=== PATIENT | female | born 2000 | race Caucasian/White ===

== ENCOUNTER 2024-11-22 13:02 | Emergency (ER) | payer OTHER, SELFPAY ==
[2024-11-22 13:08] VITALS: BP 138/76; PULSE 110; RESP 20; TEMP 37.6; O2SAT 98
--- OUTSIDE RECORDS SUMMARY | 2024-11-22 13:10 | XMS_ITS | Data Portability ---
Author Organization [facility] [place], TEST SITE Address [address] [place] [id number] Care Team Providers Care Italian Lecturer Name Role Phone MAURO CAREY Alligator Hunter Unavailable [facility] Primary Care Provider JERZY LOCKWOOD Alligator Hunter Unavailable STEF SCHMITZ Alligator Hunter Unavailable VERONICA SMITH Program Management Manager Assessment Encounter Date Assessment Date Assessment LastModified by Organization Details LastModified Time 08/09/2024 08/09/2024 23 yo female that comes due to inability to conceive for the past 5 months and a history of recurrent miscarriages. Counseled patient on doing blood work to try to identy treatable causes of anovulation and have a follow up in a month [email or web address] Not available 08/09/2024 14:15:15 Plan of Treatment Reminders Order Date Submit Date Provider Last Modified By Organization Details Last Modified Time Details Appointments None recorded . Lab insulin, serum 024 08/09/20 [facility] (Lab), [address], [place], [address], 4 11:20:50 progeste tashi, serum 024 08/09/[address] (Lab), [address], [place], [address], 4 18:08:46 prolacti n, serum 024 08/09/20 [facility] (Lab), [address], [place], [address], 4 11:20:46 TSH, serum or plasma 024 08/09/20 [facility] o3 [facility] (Lab), [address], [place], [address], 18:08:46 progeste tashi, serum 024 08/30/20 [facility]3 [facility] (Lab), [address], [place], [address], 18:08:47 Referral None recorded . Procedures None recorded . Surgeries None recorded . Imaging None recorded . Medication Orders Clomid 50 mg tablet 08/30/20 [email or web address] Aidan Castillo [facility], [address] [place], [address], 17:03:57 Patient TargetsNo targets recorded. Patient Instructions Encounter Date Encounter Id Patient Instructions Last Modified By Organization Details Last Modified Time 08/09/2024 [id number] Patient is a 23-year-old female, she is a 9 para 2-0-7-2, who is seen today for management of irregular menstrual cycles and the inability to become . She has a history of recurrent losses in the past. She has had 2 children normally from the vagina. Her last child is now 2 years of age. After she had her last child, she had a subdermal implant placed and this was removed in February 2024. Her cycles were initially irregular but in the last 3 months she has had regular menstrual cycles. She states that she has been ovulating according to her ovulation kits. I have advised the patient to get some laboratory investigations to actually document to see whether she is ovulating. I will see her back in 3 weeks and follow-up on these results. [email or web address] Not available 08/09/2024 14:16:19 08/30/2024 [id number] 23-year-old female, she is a 9 para 2-0-7-2, who is seen today for management of irregular menstrual cycles and the inability to become . She has a history of recurrent losses in the past. She has had 2 children normally from the vagina. Her last child is now 2 years of age. After she had her last child, she had a subdermal implant placed and this was removed in February 2024. Her cycles were initially irregular but in the last 3 months she has had regular menstrual cycles. She states that she has been ovulating according to her ovulation kits. I have advised the patient to get some laboratory investigations to actually document to see whether she is ovulating. She had some laboratory investigation including a TSH, and prolactin level within normal limits. She however had a very low progesterone assay. I suspect that she is not ovulating have advised her to go on Clomid 50 mg tablets per day for 5 days. I have explained to her in details the proper way to use the Clomid therapy and I will call her with the results of the progesterone assay after she completes the Clomid [email or web address] Not available 08/30/2024 16:07:20 Reason for Referral None Reported. Results Created Date Observation Date Name Description Value Unit Range Abnormal Flag Note LastModifiedBy Organization Detail LastModifiedTime 03/02/20 24 03/06/2024 PROTE IN C-FUN CTION AL LC protein C-functional 125 % 73-180 Na Perfo rmed At: [facility] [place] [address] [place] [address] Maria Luisa Garcia MD Ph:[phone] Not Available [facility] (Lab) [address], [place], [address], 03/06/2024 20:08:41 03/03/20 24 03/02/2024 US, manny s No observ ation record ed. [email or web address] [facility] (Imaging) [address], [place], [address], 03/04/2024 13:43:13 Result Notes None recorded. Problems No Known Problems Procedures Surgical History Date Name Laterality Status Provider Name and Address Organization Details Recorded Time 4 Telephone Visit completed Jerzy Lockwood MD [address], [place], [address], [facility] 04/06/2024 15:35:17 Control Implant Removal ([place]) completed Stef Schmitz MD [address], [place], [address], [facility] 03/15/2024 17:44:17 Other completed Mary Cotton [facility] 02/17/2024 13:18:47 Imaging Results Imaging Date Name Status LastModified by Organiz ation Details LastModified Time 03/02/2024 US, pelvis [email or web address] [address], [place], [address], 03/04/2024 13:43:13 Procedure Notes None recorded. Medical Equipment None Reported. Allergies No known drug allergies Medications Name Sig Start Date Stop Date Status Note LastModified by Organization Details LastModified Time ondansetron HCl 4 mg tablet 03/15 completed Not Available Not Available Not Available dicyclomine 20 mg tablet 03/15 completed Not Available Not Available Not Available cephalexin 500 mg capsule 03/15 completed Not Available Not Available Not Available Clomid 50 mg tablet Take 1 tablet every day by oral route. 2023 active Not Available Not Available Not Avai lable naproxen 500 mg tablet 03/15 completed Not Available Not Available Not Available albuterol sulfate active Not Available Not Available Not Available Flovent active Not Available Not Avail able Not Available Vitals Date Recorded Body height Body mass index (BMI) Body weight Heart rate Oxygen saturation Oxygen saturation in Arterial blood by Pulse oximetry Pain severity - 0-10 verbal numeric rating [Score] - Reported Systolic blood pressure Diastolic blood pressure Provider Name and Address Organization Details Last Updated DateTime 4 151.77 cm 36.6 kg/m2 89081.1 8 g 93 /min 99 % 99 % 0 124 mm[Hg] 78 mm[Hg] Petra Portillo [facility] 13:16:39 Date Recorded Body height Body mass index (BMI) Body weight Heart rate Oxygen saturation Oxygen saturation in Arterial blood by Pulse oximetry Pain severity - 0-10 verbal numeric rating [Score] - Reported Systolic blood pressure Diastolic blood pressure Systolic blood pressure Diastolic blood pressure Provider Name and Address Organization Details Last Updated DateTime 4 151.77 cm 35.5 kg/m2 96012.3 5 g 105 /min 97 % 97 % 0 144 mm[Hg] 105 mm[Hg] 117 mm[Hg] 2 mm[Hg] Sowmya Kirklandn [facility] 17:38:18 Date Recorded Body height Provider Name an d Address Organization Details Last Updated DateTime 03/22/2024 151.77 cm Matilde Nash [facility] 03/22/2024 15:40:45 Date Recorded Body height Respiratory rate Body mass index (BMI) Body weight Heart rate Oxygen saturation Oxygen saturation in Arterial blood by Pulse oximetry Systolic blood pressure Diastolic blood pressure Provider Name and Address Organization Details Last Updated DateTime 4 151.77 cm 18 /min 35.4 kg/m2 62027.6 3 g 88 /min 98 % 98 % 129 mm[Hg] 86 mm[Hg] Maggie Loyao [facility] 4 13:45:07 Date Recorded Body height Body mass index (BMI) Body weight Oxygen saturation Oxygen saturation in Arterial blood by Pulse oximetry Heart rate Respiratory rate Systolic blood pressure Diastolic blood pressure Provider Name and Address Organization Details Last Updated DateTime 4 151.77 cm 35.4 kg/m2 92556.6 3 g 94 % 94 % 89 /min 18 /min 126 mm[Hg] 79 mm[Hg] Maggie Loyao [facility] 13:04:16 Social History Question Answer Notes LastModified by Organizat ion Details LastModified Time Tobacco Smoking Status Never Smoker Mary silver [facility] 02/17/2024 13:18:47 What Was The Date Of Your Most Recent Tobacco Screening? 03/15/2024 [email or web address] Information not available 03/15/2024 Sex: Female Functional Status None recorded. Mental Status None recorded. Family History Relationship Description Onset Age of this Age Resolved Age Notes LastModified by Organization Details LastModified Time Mother Migraine [email or web address] Not availabl e 02/17/2024 13:18:47 Medical History Condition Response Chest pain Y Migraines Y Depression Y Asthma Y Back Pain Y Ovarian Cyst Y Gynecological History Statement/Question Response Date of LMP 03/07/2024 Post Menopausal Bleeding N Menses Monthly N STIs/STDs N Duration of Flow (days) Sexual Problems? N Current Control Method Implant Hormone Replacement Therapy N Obstetrics History GPAL:G 9 P 2 0 7 2 Type Value Full Term 2 Spontaneous 7 Living 2 Total 9 Past Encounters Encounter ID Performer Location Encounter Start Date Encounter Closed Date Diagnosis/Indication Diagnosis SNOMED-CT Code Diagnosis ICD10 Code Diagnosis Note [id number] Mauro Carey DO [facility] [address] [facility] [place] [address] 02/17/2024 13:10:28 02/17/2024 13:50:18 Recurrent miscarriage 172185099 N96 SAB x 7, no official work up has been donewill check for hypercoagu lation and uterine anatomyUS for RPLneed authorizat ion for the blood work Irregular periods 322586 07 N92.6 on Nexplanon for 2 yrsdenies menorrhagi a at this momentstab le [id number] Jerzy Lockwood MD [facility] [address] [facility] [place] [address] 03/02/2024 12:41:25 03/02/2024 13:47:40 Recurrent miscarriage 563598125 N96 Discussed with patient result from pelvic ultrasound and that we will get blood work done today that was pending. For now, we don't seem to find any reason why patient is having this recurring loss. We will schedule patient to get Nexplanon removed next week. Cyst of ovary 80120468 N 83.209 Left ovary with simple cyst of 3 cm.No symptoms. No need for further workup. [id number] Stef Schmitz MD [facility] [address] [facility] [place] [address] 03/15/2024 17:31:15 03/15/2024 17:50:15 Insertion of subcutaneous contraceptive 249952423 Z30.46 [id number] Jerzy Lockwood MD [facility] [address] [place] [address] 03/22/2024 15:39:16 03/22/2024 16:36:45 Recurrent miscarriage 729588720 N96 Discussed with patient result recent lab testss/p recent Nexplanon removal.co ntinue expect management . to return if home preg test positive or abnl periods [id number] Veronica Smith MD [facility] [address] [place] [address] 08/09/2024 13:30:36 08/09/2024 14:11:42 Anovulation 44811268 N97.0 Recurrent miscarriage 10 7593689 N96 [id number] Veronica Smith MD [facility] [address] [place] [address] 08/30/2024 12:54:36 08/30/2024 13:22:59 Anovulation 24217814 N97.0 Health Concerns Section Related Observation LastModified by Organization Detai ls LastModified Time None Recorded Concern Status LastModified by Organization Details LastModified Time None Recorded Advance Directives Directive None Recorded Payers Encounter Date Sequence Insurance Name Policy Number Policy Juarez Covered Member ID Juarez Member ID Guarantor Name 03/02/2024 1 [employer] () Valdemar Rider [id number] Chris Rider 03/15/2024 1 [employer] () Valdemar Rider [id number] Chris Rider 03/22/2024 1 [employer] () Valdemar Rider [id number] Chris Rider 08/09/2024 1 [employer] () Valdemar Rider [id number] Chris Rider 08/30/2024 1 [employer] () Valdemar Rider [id number] Chris Rider Notes Date Note Type Note Provider Name and Address Organization Details Recorded Time 03/02/2024 text/html 23yo, , LMP - 3/15/24, pt is here today to discuss recurrent miscarriages. Orders were made by Dr. Carey for lab work pt only interested in getting the antiphospholipid and protein panel since they are the only orders covered by [employer] Chris Rider is a 23yo female with PMHx of recurrent miscarriages.She states that after her last has had 3 more miscarriages, last one 3 months ago. She usually starts with morning sickness at 5 weeks, does a home test which is positive and 3-5 days later starts with bleeding.Patient desires to get soon and remove her Nexplanon as soon as posible. pt has no new c/o. denies pelvic pain or abnl VB or spotting Jerzy Lockwood MD [address], [place], [address], [facility] 03/03/2024 14:52:49 03/15/2024 text/html 23yr, LMP 2023 , , c/c Nexplanon removal -sg Stef Schmitz MD [address], [place], [address], [facility] 03/15/2024 17:50:05 03/22/2024 text/html 23 yo, c/c- revi ew results per Dr. Lockwood, via telephone visit; antiphospholipid syndrome prof lc. per dr. lockwood- pt did not answer, dr. lockwood left [facility]. pt called back later. I talked with her over the phone, regarding recent labs results: thrombophilia workup, all neg so far. recommend to continue to try for preg, but will follow pt closely next time if she gets preg. pt is in agreement, no more questions.she does report she just started mild bleeding for 3 days, which she thinks it is her period after removed nexplanon. advised to observe regular periods for next 3-6m, to return if abnl. Jerzy Lockwood MD [address], [place], [address], [facility] 04/06/2024 15:35:34 08/09/2024 text/html Chris Rider is a 23 yo female that comes due to inability to conceive for the past 5 months and a history of recurrent miscarriages.Patient was on subdermal implant until the end of February 2024, having irregular cycles at the beginning but they have normalized for the past 3 months.Patient denies having any medical condition or taking currently any medications. Veronica Smith MD [address], [place], [address], [facility] 08/09/2024 14:17:21 08/30/2024 text/html Chris Rider is a 23 yo female , she comes as a follow up for management of irregular menstrual cycles and the inability to become Patient has been tracking her periods and has been using an ovulation kit. Ovulation testing is showing that she is ovulating.She has no new symptoms or concerns to report. Veronica Smith MD [address], [place], [address], [facility] 08/30/2024 16:07:43 OBGyn Episode No OBEpisode recorded.
--- OUTSIDE RECORDS SUMMARY | 2024-11-22 13:10 | XMS_ITS | Continuity of Care Document ---
Author Name [facility] Organization [facility] Care Team Providers Care Engine Watchman Name Role Phone [facility] Unavailable Unavailable Problems Combined list of problems from [facility] facilities. It does not include entries that were removed or entered in error. Problem Status Onset Date Problem Type Date of Resolution Comments Source Depression Active [address] [place] [address] [facility] Bacterial vaginosis Active [address] [place] [address] Obesity Active [address] [place] [address] Body mass index [BMI] 35.0-35.9, adult Active [address] [place] [address] [facility] Encounter for gynecological examination (general) (routine) with abnormal findings Active [address] [place] [address] [facility] Candidiasis of skin and nail Active [address] [place] [address] Recurrent miscarriage Active [address] [place] [address] Abdominal pain Active 4 Diagnosis [facility] Ankle edema Active [address] [place] [address] [facility] Test result to patient by telephone Active [address] [place] [address] [facility] Abdominal pain Active [facility] Ankle edema Active [facility] Bipolar disorder Active [facility] Breast pain Active [facility] Bruising Active [facility] Depression Active [facility] Low back pain Active [facility] Menometrorrhagia Active [facility] Menstrual disorder Active [facility] test finding Active [facility] Recurrent miscarriage Active [facility] Tachycardia Active [facility] Test result to patient by telephone Active [facility] Well female adult Active [facility] Medications Combined list of outpatient medications from [facility] facilities.Medications provided include 1) outpatient medications from the last 15 months, and 2) patient-reported medications. Medication Details Route Status Patient Instructions Prescription Expires Prescription Number Last Dispense Date Ordering Provider Order Date Order Qty Source albuterol 90 mcg/inh aerosol inhaler 2 puff(s), Inhale, every 6 hr, PRN wheezing as needed for, use with space chamber, # 8.5 g, 1 total refill(s ), Maintena nce, 8.5g = 1 inhaler, Pharmacy : [facility] Inhala tion (breat he in) Ordered 8.5 0108A-A Bernard Du Lit Bentyl 20 mg oral tablet 1 tab(s), Oral, QID, # 40 tab(s), 0 total refill(s ), Maintena nce, Pharmacy : [facility] Oral (given by mouth) Complet ed 05/13/2024 40.0 0108A-A Bernard Du Lit cephalexin 500 mg oral tablet 1 tab(s), Oral, QID, X 7 days, # 28 tab(s), 0 total refill(s ), Acute, 07/28/23 2:25:00 PM CDT, Pharmacy : [facility] Oral (given by mouth) Complet ed 07/28/2023 28.0 [facility] [employer] hydroCHLORO thiazide 12.5 mg oral capsule 1 cap(s), Oral, Daily, for edema, # 14 cap(s), 0 total refill(s ), Maintena nce, Pharmacy : [facility] Oral (given by mouth) Ordered 14.0 [facility] [employer] [place] inhaler spacer (optichambe r) 1 EA, N/A, As Directed , Use as directed with albutero l inhaler, # 1 EA, 0 total refill(s ), Maintena nce, Supply, Route to [facility] Not Applic able Ordered 1.0 [facility] meloxicam 7.5 mg oral tablet 1 tab(s), Oral, Daily, # 30 tab(s), 1 total refill(s ), Maintena nce, Pharmacy : [facility] Oral (given by mouth) Ordered 30.0 [facility] metroNIDAZO LE 500 mg oral tablet 1 tab(s), Oral, BID, X 7 days, # 14 tab(s), 0 total refill(s ), Acute, 07/21/24 9:33:00 AM CDT, Pharmacy : [facility] , Gynecolo gic, other Oral (given by mouth) Complet ed 07/21/2024 14.0 [facility] naproxen 500 mg oral tablet 1 tab(s), Oral, BID, # 30 tab(s), 0 total refill(s ), Acute, 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, Pharmacy : [facility] Oral (given by mouth) Complet ed 09/02/2023 30.0 [facility] nystatin 100,000 units/g topical powder 1 appl(s), Topical, BID, # 30 g, 0 total refill(s ), Maintena nce, Pharmacy : [facility] Topica l (on the skin) Ordered 30.0 [facility] propranolol 10 mg tablet 10 mg, Oral, BID, # 60 EA, 0 total refill(s ), Hard Stop Oral (given by mouth) Complet ed 08/11/2024 60.0 [facility] sertraline 50 mg tablet See Instruct ions, # 30 EA, 0 total refill(s ), Hard Stop Complet ed 09/05/2024 30.0 [facility] Vraylar Oral, Daily, 0 total refill(s ), Maintena nce Oral (given by mouth) Ordered [facility] Vraylar 1.5 mg capsule 1.5 mg, Oral, every morning, # 30 EA, 0 total refill(s ), Hard Stop Oral (given by mouth) Complet ed 07/08/2024 30.0 [facility] y Vraylar 3 mg capsule 3 mg, Oral, every morning, # 30 EA, 0 total refill(s ), Hard Stop Oral (given by mouth) Complet ed 08/11/2024 30.0 [facility] y Zofran 4 mg oral tablet 1 tab(s), Oral, every 8 hr, PRN nausea/v omiting, # 30 tab(s), 0 total refill(s ), Gabo gonzalez, Pharmacy : [facility] Oral (given by mouth) Complet ed 05/13/2024 30.0 [facility] Allergies, Adverse Reactions, Alerts Combined list of allergies from [facility] and [facility] facilities. It does not include entries that were removed or entered in error. Substance Category Reaction Severity Reaction type Status Date Reported Comments Source Singulair Drug allergy Eruption of skin (disorder) Moderate Active [facility] Versed Drug allergy Eruption of skin (disorder) Moderate Active [facility] Results Combined list of recent chemistry, hematology and other laboratory results from [facility], ranging from 15 months to all on record, depending upon the facility. Order Name Results Value Reference Range Date Interpretation Specimen Comments Source Molecula r Infectio us Disease Chlamydia NAAT, Endocervic al Not Detected (07/12/24 10:40 AM) Not Detected 07/12 [facility] Molecula r Infectio us Disease GC NAAT, Endocervic al Not Detected (07/12/24 10:40 AM) Not Detected 07/12 [facility] Molecula r Infectio us Disease Candy glabrata Not Detected *NA* (07/12/24 10:40 AM) Not Detected 07/12 [facility] Molecula r Infectio us Disease Candy Species Not Detected *NA* (07/12/24 10:40 AM) Not Detected 07/12 [facility] Molecula r Infectio us Disease Trichomona s vaginalis Not Detected *NA* (07/12/24 10:40 AM) Not Detected 07/12 [facility] AP Specimen s HPV Typing High Risk Not Detected *NA* (07/12/24 10:26 AM) Not Detected 07/12 [facility] AP Specimen s AP Cyto HOSPITAL SECRETARY Patient: Chris Rider Specimen #: [id number] Patholog ist: Accessio n: [facility] DEPARTME NT OF PATHOLOG Y [address] [facility] [place] [address] Tel: [phone] Fax: Cytology Gynecolo gic Report Patient: Chris Rider Specimen #: [id number] DOD ID:: [id number] Encounte r #: [id number] Taken: 4 10:26 /Age: 1 3 (Age: 23) Received : 4 08:42 Physicia n(s:): GEORGES PUSHPA Reported : 4 Specimen (s) Received Taken Rec cervix 4 10:26 4 08:42 Final Diagnosi s cervix: Satisfac tory for evaluati on; endocerv ical componen t present. Partiall y obscurin g inflamma tion. Negative for intraepi thelial lesion or malignan cy. Elect ronicall y Signed by Star Augustin, CT HPV Test Date Ordered: 4 Date Reported : 4 Interpre tation HPV mRNA: NEGATIVE This test was performe d using APTIMA HPV ([employer] ) which detects HPV E6/E7 mRNA. The high-ris k HPV types detected by APTIMA HPV include: 16, 18, 31, 33, 35, 39, 45, 51, 52, 56, 58, 59, 66, and 68. SUSAN LIPSCOMB Clinical Diagnosi s and History screenin g for malignan t neoplasm of cervix Prior History Signed Out Specimen # Interpre tation CPT Codes: 69976 The Pap test is a screenin g test for precurso rs of squamous cell carcinom a with an irreduci ble false negative rate of around 5%. It is not designed to detect glandula r lesions. A negative test does not ensure that no disease is present. 07/12 [facility] Coagulat ion PT 11.4 s 9.7 - 13.1 06/22 N [facility] Coagulat ion INR 1.01 06/22 [facility] Chemistr y eGFR CKD EPI 126 mL/min/1 .73_m2 06/22 Interpretiv e Data: Estimated Glomerular Filtration Rate (eGFR) calculated using the 2020 Chronic Kidney Disease-Epi demiology (CKD-EPI) Collaborati on creatinine equation; units of measure are mL/min/1.73 m2. Results are only valid for adults (e18 years) whose serum creatinine is in steady state.? eGFR calculation s are not valid for patients with acute kidney injury and for patients on dialysis. ?Creatinine -based estimates of kidney function may also be inaccurate in patients with reduced creatinine generation due to decreased muscle mass (e.g., malnutritio n, severe hypoalbumin emia, sarcopenia, chronic neuromuscul ar disease, amputations , severe heart failure or liver disease) and in patients with increased creatinine generation due to increased muscle mass (e.g., muscle builders, anabolic steroids) or increased dietary intake. As drug clearance is proportiona l to total GFR and not GFR indexed to body surface area (BSA), in individuals with a BSA substantial ly different than 1.73 m2, drug dosing should be based the reported eGFRvalue de-indexed from BSA by multiplying by the individual s BSA and dividing by 1.73. CKD is diagnosed based on abnormaliti es of kidney structure or function, present for >3 months, with implication s for health and disease. CKD is classified and staged based on cause, eGFR and albuminuria (quantified as urine albumin to creatinine ratio). An eGFR >60 mL/min/1.73 m2 in the absence of increased urine albumin excretion or structural abnormaliti es does not represent CKD.eGFR (mL/min/1.7 3 m2) CKD stage Interpretat ion e90 G1 Normal 60-89 G2 Mild decrease 45-59 G3A Mild to moderate decrease 30-44 G3B Moderate to severe decrease 15-29 G4 Severe decrease <15 G5 Kidney failure [facility] Hematolo gy WBC 7.40 10^3/uL 3.60 - 11.32049 06/22 N [facility] Hematolo gy RBC 4.93 10^6/uL 4.00 - 5.45408 06/22 N [facility] Hematolo gy Hemoglobin 13.60 g/dL 12.00 - 16.00 06/22 N [facility] Hematolo gy Hematocrit 40.9 % 36.0 - 46.0 06/22 N [facility] Hematolo gy MCV 83.00 fL 80.00 - 100.00 06/22 N [facility] Hematolo gy MCH 27.60 pg 26.00 - 34.00 06/22 N [facility] Hematolo gy MCHC 33.30 g/dL 32.00 - 36.00 06/22 N [facility] Hematolo gy RDW SD 36.1 06/22 [facility] Hematolo gy RDW CV 12.0 % 11.6 - 16.6 06/22 N [facility] Hematolo gy Platelets 272.00 10^3/uL 150.00 - 440.62900 06/22 N [facility] Hematolo gy MPV 9.50 fL 7.60 - 11.60 06/22 N [facility] Chemistr y Glucose Lvl 103 mg/dL 74 - 118 06/22 N [facility] Chemistr y BUN 13.0 mg/dL 7.0 - 18.7 06/22 N [facility] Chemistr y CO2 21.0 mmol/L 22.0 - 32.0 06/22 L [facility] Chemistr y Creatinine Level 0.70 mg/dL 0.40 - 1.00 06/22 N [facility] Chemistr y Calcium 9.2 mg/dL 8.9 - 10.3 06/22 N [facility] Chemistr y ALT 10 U/L 14 - 54 06/22 L [facility] Chemistr y AST 22 U/L 15 - 51 06/22 N [facility] Chemistr y Bilirubin Total 0.30 mg/dL 0.30 - 1.20 06/22 N [facility] Chemistr y Alk Phos 83 U/L 32 - 91 06/22 N [facility] Chemistr y Albumin 4.4 g/dL 3.5 - 4.8 06/22 N [facility] Chemistr y Protein Total 8.0 g/dL 6.1 - 7.9 06/22 H [facility] Chemistr y Sodium 138 mmol/L 136 - 144 06/22 N [facility] Chemist[facility] y Potassium Lvl 4.87 mmol/L 3.60 - 5.10 06/22 N [facility] Chemist[facility] y Chloride 104 mmol/L 101 - 111 06/22 N Interpretiv e Data: Random samples reference range is based on urine output of 1.5 L/day. Random reference ranges are not established for infants and children; correlation with age and weight/body surface area is required. [facility] Chemist[facility] y AGAP 13 7 - 16 06/22 N [facility] Chemist[facility] y Hemoglobin A1c 5.2 % 4.2 - 6.4 06/22 N [facility] Chemistr y eAvg Glucose 102 06/22 [facility] Chemist[facility] y TSH 1.370 uIU/mL 0.350 - 5.500 06/22 N [facility] Chemistr y Cholestero l Total 191.0 mg/dL 06/22 N [facility] Chemist[facility] y HDL Cholestero l 47.0 mg/dL 29.0 - 89.0 06/22 N [facility] Chemistr y LDL 122.0 mg/dL 8.5 - 159.0 06/22 N [facility] Chemistr y Triglyceri cirilo 142.0 mg/dL 8.8 - 150.0 06/22 N Interpretiv e Data: +Normal <150 mg/dL Borderline 150-199 mg/dL High 200-500 mg/dL Very High >500 mg/dL [facility] Chol/HDL 4 1 - 6 06/22 N [facility] Chemist[facility] y Vitamin D 25 OH 29.3 ng/mL 20.0 - 49.9 06/22 N [facility] Hematolo gy Neutrophil % Auto 61.0 % 40.0 - 74.0 06/22 N [facility] Hematolo gy Lymphocyte % Auto 28.0 % 14.0 - 46.0 06/22 N [facility] Hematolo gy Monocyte % Auto 6.1 % 4.0 - 13.0 06/22 N [facility] Hematolo gy Eosinophil % Auto 4.3 % 0.0 - 7.0 06/22 N [facility] Hematolo gy Basophil % Auto 0.3 % 0.0 - 3.0 06/22 N [facility] Hematolo gy Imm. Granulocyt e % 0.3 % 0.0 - 0.0 06/22 H [facility] Hematolo gy Neutro Absolute 4.52 10^3/uL 1.50 - 8.54590 06/22 N [facility] Hematolo gy Lymph Absolute 2.07 10^3/uL 1.00 - 4.34374 06/22 N [facility] Hematolo gy Ziebach Absolute 0.45 10^3/uL 0.00 - 1.94061 06/22 N [facility] Hematolo gy Eos Absolute 0.32 10^3/uL 0.00 - 1.64566 06/22 N [facility] Hematolo gy Baso Absolute 0.02 10^3/uL 0.00 - 0.19193 06/22 N [facility] Hematolo gy nRBC % Auto 0 % 0 - 0 06/22 N [facility] Hematolo gy nRBC Absolute 0 06/22 [facility] Hematolo gy Imm. Granulocyt e Absolute 0.02 10^3/uL 0.00 - 1.37465 06/22 N [facility] Chemistr y Beta hCG Qnt <1 m[iU]/mL 1 - 5 08/19 N Interpretiv e Data: Concentrati ons of bHCG greater than or equal to 5 mIU/mL is indicative of in the appropriate clinical context. Reference Range: Females Low High 0.2 - 1 week 5 50 1 - 2 week 50 500 2 - 3 week 100 5000 3 - 4 week 500 10086 4 - 5 week 1000 68046 5 - 6 week 34739 939766 6 - 8 week 93944 278584 8 - 12 week 91168 [id number] [facility] Co[facility] Coag Studies Interpreta tion TERESA Note 07/30 Result Comment: --------- COAGULATION : ANTIPHOSPHO LIPID SYNDROME ASSESSMENT ASSESSMENT A lupus anticoagula nt is not detected. aCL and B2GP1 antibodies are normal. ANTIPHOSPHO LIPID SYNDROME ASSESSMENT SUMMARY - No evidence of a lupus anticoagula nt, B2GP1 or aCL antibodies. As antibody titers may fluctuate with time, repeat testing may be indicated if antiphospho lipid syndrome is suspected. ANTIPHOSPHO LIPID SYNDROME ASSESSMENT DEFINITIONS - aCL- anticardiol ipin (antibodies to cardiolipin ); B2GP1- antibodies to Beta-2 Glycoprotei n 1; LA- lupus anticoagula nt (which is identified with the dRVVT and/or hexagonal phospholipi d neutralizat ion assays); aPL- antibodies to protein/eusebio spholipid complexes such as LA, aCL, and B2GP1 antibodies; APS- antiphospho lipid syndrome; DTI-direct thrombin inhibitors. AUTO ELECTRICAL TECHNICIAN: For questions regarding panel interpretat ion, please contact Clinton Stevenson M.D. at [employer] [facility] at [phone]. --------- DISCLAIMER These assessments and interpretat ions are provided as a convenience in support of the physician-p atformerly [facility] and are not intended to replace the physician's clinical judgment. They are derived from national guidelines in addition to other evidence and expert opinion. The clinician should consider this information within the context of clinical opinion and the individual patient. SEE GUIDANCE FOR ANTIPHOSPHO LIPID SYNDROME ASSESSMENT: (1) Myles V et al. J Thromb Haemost. 2009; 7(10):1737- 1740. (2) Shawn S et al. J Thromb Haemost. 2006;4(2):2 95-306. (3) Andrew DA et al. Blood. 2007;110(9) : 2767-9779. Performed At: 01 [facility] [address] [place], [place] [id number] Baldomero Ortega MD Ph:[phone] [facility] Coagulat ion aPTT 28.1 s 07/30 [facility] Coagulat ion PT 10.6 s 07/30 [facility] Coagulat ion INR 1.0 07/30 Result Comment: Reference interval is for non-anticoa gulated patients. Suggested INR therapeutic range for Vitamin K antagonist therapy: Standard Dose (moderate intensity therapeutic range): 2.0 - 3.0 Higher intensity therapeutic range 2.5 - 3.5 [facility] Co[facility] Thrombin Time.LC 14.9 s 07/30 [facility] Coagul[facility] ion dRVVT LC 37.2 s 07/30 [facility] Coagul[facility] ion Hexagonal Phase Phos LC 4 s 07/30 [facility] Co[facility] ion Cardiolipi n IgG.LC <9 GPLunit/ mL 07/30 Result Comment: Negative: <15 Indetermina te: 15 - 20 Low-Med Positive: >20 - 80 High Positive: >80 [facility] Co[facility] ion Cardiolipi n IgM.LC 9 MPLunit/ mL 07/30 Result Comment: Negative: <13 Indetermina te: 13 - 20 Low-Med Positive: >20 - 80 High Positive: >80 [facility] Coagul[facility] ion B-2-Glycop rotein I IgG.LC <9 GPIIgGun its 07/30 Result Comment: The reference interval reflects a 3SD or 99th percentile interval, which is thought to represent a potentially clinically significant result in accordance with the Internation al Consensus Statement on the classificat ion criteria for definitive antiphospho lipid syndrome (APS). J Thromb Haem 2006;4:295- 306. [facility] Coagulat ion B-2-Glycop rotein I IgM.LC <9 GPIIgMun its 07/30 Result Comment: The reference interval reflects a 3SD or 99th percentile interval, which is thought to represent a potentially clinically significant result in accordance with the Internation al Consensus Statement on the classificat ion criteria for definitive antiphospho lipid syndrome (APS). J Thromb Haem 2006;4:295- 306. [facility] Coagulat ion APS Interpreta tion LC COMMENT 07/30 Result Comment: Please refer to the Coag Studies Interp Report. Performed At: 01 [facility] [place] [address] [id number] Maude Garcia MD Ph:[phone] Performed At: [address] [facility] [id number] Howard Medina MD Ph:[phone] [facility] Chemistr y T3 Total 1.200 ng/mL 0.870 - 1.780 07/30 N [facility] Chemist[facility] y TSH 2.350 uIU/mL 0.350 - 5.500 07/30 N [facility] Chemistr y T4 Free 1.120 ng/dL 0.580 - 1.640 07/30 N [facility] Chemistr y TSH 1.170 uIU/mL 0.350 - 5.500 05/27 N [facility] Chemistr y Sodium 138 mmol/L 136 - 144 05/27 N [facility] Chemist[facility] y Potassium Lvl 4.39 mmol/L 3.60 - 5.10 05/27 N [facility] Chemist[facility] y Chloride 104 mmol/L 101 - 111 05/27 N Interpretiv e Data: Random samples reference range is based on urine output of 1.5 L/day. Random reference ranges are not established for infants and children; correlation with age and weight/body surface area is required. [facility] Chem[facility] y Glucose Lvl 96 mg/dL 74 - 118 05/27 N [facility] Chemistr y BUN 13.0 mg/dL 7.0 - 18.7 05/27 N [facility] Chemistr y CO2 24.0 mmol/L 22.0 - 32.0 05/27 N [facility] Chemistr y Creatinine Level 0.70 mg/dL 0.40 - 1.00 05/27 N [facility] Chemist[facility] y Calcium 9.4 mg/dL 8.9 - 10.3 05/27 N [facility] Chemistr y ALT 11 U/L 14 - 54 05/27 L [facility] Chemist[facility] y AST 22 U/L 15 - 51 05/27 N [facility] Chemist[facility] y Bilirubin Total 0.50 mg/dL 0.30 - 1.20 05/27 N [facility] Chemist[facility] y Alk Phos 94 U/L 32 - 91 05/27 H [facility] Chemistr y Albumin 4.9 g/dL 3.5 - 4.8 05/27 H [facility] Chemistr y Protein Total 8.1 g/dL 6.1 - 7.9 08/09 /2023 H [facility] Chemistr y AGAP 10 7 - 16 05/27 N [facility] Chemist[facility] y Cholestero l Total 158.0 mg/dL 05/27 N [facility] Chemist[facility] y HDL Cholestero l 35.0 mg/dL 29.0 - 89.0 05/27 N [facility] Chemistr y LDL 102.0 mg/dL 8.5 - 159.0 05/27 N [facility] Chemist[facility] y Triglyceri cirilo 159.0 mg/dL 8.8 - 150.0 05/27 H Interpretiv e Data: +Normal <150 mg/dL Borderline 150-199 mg/dL High 200-500 mg/dL Very High >500 mg/dL [facility] Chem[facility] Chol/HDL 5 1 - 6 05/27 N [facility] Hematolo gy WBC 6.51 10^3/uL 3.60 - 11.58596 05/27 N [facility] Hematolo gy RBC 5.03 10^6/uL 4.00 - 5.57909 05/27 N [facility] Hematolo gy Hemoglobin 13.3 g/dL 12.0 - 16.0 05/27 N [facility] Hematolo gy Hematocrit 42 % 36 - 46 05/27 N [facility] Hematolo gy MCV 84.1 fL 80.0 - 100.0 05/27 N [facility] Hematolo gy MCH 26.4 pg 26.0 - 34.0 05/27 N [facility] Hematolo gy MCHC 31.4 g/dL 32.0 - 36.0 05/27 L [facility] Hematolo gy RDW SD 38.3 05/27 [facility] Hematolo gy RDW CV 12.6 % 11.6 - 16.6 05/27 N [facility] Hematolo gy Platelets 278 10^3/uL 150 - 634017 05/27 N [facility] Hematolo gy MPV 11.2 fL 7.6 - 11.6 05/27 N [facility] Hematolo gy Neutrophil % Auto 57.1 % 40.0 - 74.0 05/27 N [facility] Hematolo gy Lymphocyte % Auto 33.6 % 14.0 - 46.0 05/27 N [facility] Hematolo gy Monocyte % Auto 6.1 % 4.0 - 13.0 05/27 N [facility] Hematolo gy Eosinophil % Auto 2.6 % 0.0 - 7.0 05/27 N [facility] Hematolo gy Basophil % Auto 0.6 % 0.0 - 3.0 05/27 N [facility] Hematolo gy Imm. Granulocyt e % 0.3 % 05/27 [facility] Hemat[facility] Neutro Absolute 3.71 10^3/uL 1.50 - 8.74079 05/27 N [facility] Hematolo gy Lymph Absolute 2.19 10^3/uL 1.00 - 4.44321 05/27 N [facility] Hematolo gy Ziebach Absolute 0.40 10^3/uL 05/27 [facility] Hematolo gy Eos Absolute 0.17 10^3/uL 0.00 - 1.91753 05/27 N [facility] Hematolo gy Baso Absolute 0.04 10^3/uL 0.00 - 0.95242 05/27 N [facility] Hematolo gy nRBC % Auto 0 % 05/27 N [facility] Hematolo gy nRBC Absolute 0 10^3/uL 05/27 [facility] Hematolo gy Imm. Granulocyt e Absolute 0.02 10^3/uL 0.00 - 1.77684 05/27 N [facility] Chemistr y eGFR CKD EPI 127 mL/min/1 .73_m2 05/27 Interpretiv e Data: Estimated Glomerular Filtration Rate (eGFR) calculated using the 2020 Chronic Kidney Disease-Epi demiology (CKD-EPI) Collaborati on creatinine equation; units of measure are mL/min/1.73 m2. Results are only valid for adults (e18 years) whose serum creatinine is in steady state.? eGFR calculation s are not valid for patients with acute kidney injury and for patients on dialysis. ?Creatinine -based estimates of kidney function may also be inaccurate in patients with reduced creatinine generation due to decreased muscle mass (e.g., malnutritio n, severe hypoalbumin emia, sarcopenia, chronic neuromuscul ar disease, amputations , severe heart failure or liver disease) and in patients with increased creatinine generation due to increased muscle mass (e.g., muscle builders, anabolic steroids) or increased dietary intake. As drug clearance is proportiona l to total GFR and not GFR indexed to body surface area (BSA), in individuals with a BSA substantial ly different than 1.73 m2, drug dosing should be based the reported eGFRvalue de-indexed from BSA by multiplying by the individual s BSA and dividing by 1.73. CKD is diagnosed based on abnormaliti es of kidney structure or function, present for >3 months, with implication s for health and disease. CKD is classified and staged based on cause, eGFR and albuminuria (quantified as urine albumin to creatinine ratio). An eGFR >60 mL/min/1.73 m2 in the absence of increased urine albumin excretion or structural abnormaliti es does not represent CKD.eGFR (mL/min/1.7 3 m2) CKD stage Interpretat ion e90 G1 Normal 60-89 G2 Mild decrease 45-59 G3A Mild to moderate decrease 30-44 G3B Moderate to severe decrease 15-29 G4 Severe decrease <15 G5 Kidney failure Ambulator [facility] Pharmacy Vital Signs Combined list of inpatient and outpatient Vital Signs from Department of Defense and Veterans Affairs, ranging from 12 months to all on record, depending upon the facility. Vital Sign Value Date Comments Source Temperature Oral 36.7Cel 06/11/2024 02:48:00 Ambulatory Pharmacy Systolic Blood Pressure 118mm[Hg] 06/11/2024 02:48:00 Ambulatory Pharmacy Diastolic Blood Pressure 74mm[Hg] 06/11/2024 02:48:00 Ambulatory Pharmacy Peripheral Pulse Rate 92bpm 06/11/2024 02:48:00 Ambulatory Pharmacy Respiratory Rate 22br/min 06/11/2024 02:48:00 Ambulatory Pharmacy Systolic Blood Pressure 124mm[Hg] 07/12/2024 16:19:00 Ambulatory Pharmacy Diastolic Blood Pressure 81mm[Hg] 07/12/2024 16:19:00 Ambulatory Pharmacy Mean Arterial Pressure, Calc 95mm[Hg] 07/12/2024 16:19:00 Ambulatory P harmacy Peripheral Pulse Rate 60bpm 07/12/2024 16:19:00 Ambulatory Pharmacy Respiratory Rate 18br/min 07/12/2024 16:19:00 Ambulatory Pharmacy Temperature Oral 36.7Cel 07/12/2024 16:19:00 Ambulatory Pharmacy BP Site 07/12/2024 16:19:00 Ambul at[facility] Pharmacy Blood Pressure Manual 07/12/2024 16:19:00 Ambulatory Pharmacy Temperature Oral 36.9Cel 12/24/2023 19:18:00 Ambulatory Pharmacy Systolic Blood Pressure 134mm[Hg] 12/24/2023 19:18:00 Ambulatory Pharmacy Diastolic Blood Pressure 78mm[Hg] 12/24/2023 19:18:00 Ambulatory Pharmacy Peripheral Pulse Rate 97bpm 12/24/2023 19:18:00 Ambulatory Pharmacy Respiratory Rate 18br/min 12/24/2023 19:18:00 Ambulatory Pharmacy Systolic Blood Pressure 130mm[Hg] 07/21/2023 19:36:00 Ambulatory Pharmacy Diastolic Blood Pressure 80mm[Hg] 07/21/2023 19:36:00 Ambulatory Pharmacy Mean Arterial Pressure, Calc 97mm[Hg] 07/21/2023 19:36:00 Ambulatory P harmacy Peripheral Pulse Rate 91bpm 07/21/2023 19:36:00 Ambulatory Pharmacy Respiratory Rate 20br/min 07/21/2023 19:36:00 Ambulatory Pharmacy Temperature Oral 36.6Cel 07/21/2023 19:36:00 Ambulatory Pharmacy BP Site 07/21/2023 19:36:00 [facility] Pharmacy Blood Pressure Manual 07/21/2023 19:36:00 Ambulatory Pharmacy Systolic Blood Pressure 126mm[Hg] 06/11/2024 05:56:00 Ambulatory Pharmacy Diastolic Blood Pressure 79mm[Hg] 06/11/2024 05:56:00 Ambulatory Pharmacy Temperature Oral 36.7Cel 06/11/2024 05:56:00 Ambulatory Pharmacy Peripheral Pulse Rate 79bpm 06/11/2024 05:56:00 Ambulatory Pharmacy Respiratory Rate 20br/min 06/11/2024 05:56:00 Ambulatory Pharmacy Systolic Blood Pressure 111mm[Hg] 05/27/2023 14:38:00 Ambulatory Pharmacy Diastolic Blood Pressure 78mm[Hg] 05/27/2023 14:38:00 Ambulatory Pharmacy Mean Arterial Pressure, Calc 89mm[Hg] 05/27/2023 14:38:00 Ambulatory P harmacy Peripheral Pulse Rate 105bpm 05/27/2023 14:38:00 Ambulatory Pharmacy Respiratory Rate 20br/min 05/27/2023 14:38:00 Ambulatory Pharmacy Temperature Oral 36.8Cel 05/27/2023 14:38:00 Ambulatory Pharmacy BP Site 05/27/2023 14:38:00 Ambul at[facility] Pharmacy Blood Pressure Manual 05/27/2023 14:38:00 Ambulatory Pharmacy Systolic Blood Pressure 124mm[Hg] 06/07/2024 16:13:00 Ambulatory Pharmacy Diastolic Blood Pressure 86mm[Hg] 06/07/2024 16:13:00 Ambulatory Pharmacy Mean Arterial Pressure, Calc 99mm[Hg] 06/07/2024 16:13:00 Ambulatory P harmacy Peripheral Pulse Rate 77bpm 06/07/2024 16:13:00 Ambulatory Pharmacy Respiratory Rate 18br/min 06/07/2024 16:13:00 Ambulatory Pharmacy Temperature Oral 36.5Cel 06/07/2024 16:13:00 Ambulatory Pharmacy BP Site 06/07/2024 16:13:00 [facility]ul at[facility] Pharmacy Blood Pressure Manual 06/07/2024 16:13:00 Ambulatory Pharmacy Systolic Blood Pressure 132mm[Hg] 06/11/2024 04:50:00 Ambulatory Pharmacy Diastolic Blood Pressure 84mm[Hg] 06/11/2024 04:50:00 Ambulatory Pharmacy Respiratory Rate 18br/min 06/11/2024 04:50:00 Ambulatory Pharmacy Peripheral Pulse Rate 84bpm 06/11/2024 04:50:00 Ambulatory Pharmacy Temperature Oral 36.6Cel 06/11/2024 04:50:00 Ambulatory Pharmacy Encounters Combined list of: 1) Encounters from Department of Veterans Affairs facilities going back up to thelast 18 months. 2) Encounters from the Department of Defense facilities going back up to 280 months. Location Location Details Encounter Type Encounter Number Reason For Visit Attending Provider ADM Date DC Date Status Disposition Source [id number] [place] [facility] Out[facility] [id number] JUNG SANDS 06/22 Discharge Disposition: Home or Self Care [facility]-A [facility] Kauffman [facility] [id number] Unspeci fied abdomin al pain,Lo calized edema,P erson consult ing for explana tion of examina tion or test finding s JUNG SANDS 06/27 Discharge Disposition: Home or Self Care [facility] [id number] Recurre nt pregnan cy loss JUNG SANDS 07/07 Discharge Disposition: Home or Self Care [facility] [id number] Acute vaginit is,Obes ity, unspeci fied,Frank dy mass index (BMI) 35.0-35 .9, adult,E ncounte r for gynecol ogical examina tion (genera l) (routin e) with abnorma l finding s,Shakila diasis of skin and nail JUNG SANDS 07/12 Discharge Disposition: Home or Self Care [facility] [id number] Depress ion, unspeci fied JUNG SANDS 09/13 Discharge Disposition: Home or Self Care [address] [place] [address] Procedures Combined list of: 1) Procedures from Department of Veterans Affairs facilities going back up to thelast 18 months, not all [place] non-surgical procedures are included; 2) All procedures from the Department of Defense facilities. Procedure Procedure Type Code Date Perfomer Comments Sourc e Lumbar surgical sympathectomy Lumbar sympathectomy (procedure) [id number] [address] [place] [address] Social History Combined list of available smoking, tobacco, and other social history from Department of Defense and Veterans Affairs facilities. Social History Type Response Date Comment Sourc e Tobacco Frequent/Daily expos ure to secondhand smoke in indoor/confined spaces No. Cigarette use: Never-cigarette user. Other Tobacco use: Never-other tobacco user (not cigarettes). Ambulatory Pharmacy Sexual Orientation Ambula tory Pharmacy Gender identity Ambulator y Pharmacy Female Ambulatory Pha rmacy Assessment and Plan Combined list of future care activities from Department of Defense and Veterans Affairs facilities (e.g., assessment and plan notes, appointments, orders, and referrals). Additional future care activities may be listed in the Plan of Care section. Result Assessment and Plan Date Source Assessment and Plan Extracted from:Title : Depression/ referral for counseling Author: JUNG TAVERAS MD Date: 09/13/24 1.?Depression ??High PHQ-9? score. Not?suicidal.? ?Continue medication and f/u as per psychiatrist.?? ?Will refer patient for counseling/ therapy.? ? Referral process reviewed with patient.? Personally performed the services described in this documentation, as scribed by:?Barbara Pham?VAZQUEZ ?in my presence, and it is both accurate and complete. MDM: low number problems, low amount data, low risk complications.? Ordered: Referral Request 2.0 - DoD ? ? ? Jung Taveras???AAFP [facility] [phone] [address]? [place] [address] ? Extracted from:Title: Office Clinic Note WWE Author: GEORGES BARROW NP Date: 07/12/24 1.?Encounter for gynecological examination (general) (routine) with abnormal findings 23-year-old female G9, P2?reports trying to conceive and being currently managed by HOSPITAL SECRETARY.? Today pelvic exam mostly unremarkable with the exception of?vaginal discharge noted.? Samples collected for further management. ? Discussed diet and exercise recommendations to include limiting carbohydrate and saturated fat intake, maintaining calorie balance, and exercising 150-180 minutes weekly with 2 days of strength training in large muscle groups. ? ? Personally performed the services describe in this documentation, as scribe by?Chencho Alvarado LVN?in my presence and it is both accurate and complete. MDM:? Low?number problems,?low?amount data,?low?risk complications.? Medication reconciliation completed.? Patient?was provided a printed copy of reconciled medications. ? F2F I spent a total of 20 minutes in the care of this patient. This includes review of past records, assessment and plan of care. All questions were answered and patient agrees with plan.? ? BUCK Zuñiga-ANILA [facility] [address] [place] [place] [address] ? 2.?Acute vaginitis Patient?with report of vaginal discharge all her life, sample collected to further manage. Ordered: Vaginitis/Vaginosis Panel ? 3.?Encounter for screening for infections with a predominantly sexual mode of transmission Sample collected for screening of chlamydia/gonorrhea Ordered: Chlamydia/GC NAAT Panel, Endocervical ? 4.?Encounter for screening for malignant neoplasm of cervix Sample collected for screening of cervical cancer. Ordered: AP Cytology HOSPITAL SECRETARY Commercial Internship Assist Pelvic Exam Setup ? 5.?Candidiasis of skin and nail Patient with findings of?candidate to?groin area.? Will treat with nystatin powder. ?Patient advised keeping area dry?wearing?mostly white cotton underwear?and decrease moisture?when possible. ? 6.?Obesity Patient with reports of inability to lose weight in spite of healthy diet and exercise. ?BMI 35. ?Will refer to occupational therapy technician for further management. ? 7.?Body mass index [BMI] 35.0-35.9, adult ? Orders: nystatin topical(nystatin 100,000 units/g topical powder), 1 appl(s), Topical, BID, # 30 g, 0 total refill(s), Maintenance, 1 appl(s) Topical BID, Pharmacy: [facility] [Not filled] Dictation is done with [employer] software which has inherent errors. ?Every attempt is made to proof read material. Parts of the note are initiated by a scribe. These notes are reread and I am in agreement with its contents. Extracted from:Title: PROJECT DEVELOPER referral Author: JUNG TAVERAS MD Date: 07/07/24 1.?Recurrent miscarriage Patient claims to have, at least, 10 spontaneous abortions and 2 live births ( from age 17 to age 23, with a 22 month period of using Nexplanon).?? Last miscarriage 2 months ago.? Patient has seen a director index in?[place] but needs new referral . She would like to have more children. ? Previous referral 05/2024, patient was sent to another HOSPITAL SECRETARY. Patient wants referral to specific director index in [place].? Personally performed the services described in this documentation, as scribed by:?Karina?Clark SHUKLA??in my presence, and it is both accurate and complete. MDM: low number problems, low amount data, low risk complications.? Total time: 20 minutes.? Orders: Referral Request 2.0 - DoD Extracted from:Title: Lab results/ ankle edema/ abdominal pain Author: JUNG TAVERAS MD Date: 06/27/24 1.?Ankle edema Normal labs.??? Unclear cause. Obesity could be a factor.?? Patient has reduced water intake.? Consider trial with HCTZ for a few days ( after patient evaluate in ER for abdominal pain).? Personally performed the services described in this documentation, as scribed by:?Karina Rodas?[employer]?in my presence, and it is both accurate and complete. MDM: moderate number problems, low amount data, low risk complications.? Total time: 20 minutes.?? f/u after ER evaluation. 2.?Test result to patient by telephone Lab results reviewed with patient.? Normal CBC, CMP, TSH , lipid panel, vitamin D, A1 C hg.? 3.?Abdominal pain RLQ abdominal pain for 4-5 days, As per patient evaluated at local ER , diagnosed with appendicitis? but discharged home ( no antibiotics).?? Patient continues with pain. Advised to go to [facility] ER for reevaluation today.? Extracted from:Title: Low back pain/ x ray f/u Author: JUNG TAVERAS MD Date: 06/22/24 1.?Low back pain Reported L5 surgery at age 17 due to vertebral fracture.?? Patient reports severe pain exacerbation and sensation of something moving in the area. X ray:? 1. ?Grade 1 anterolisthesis of L5-S1 with bilateral L5 spondylolysis is status post screw fixation. Hardware appears intact.2. ?Otherwise, remaining lumbar spine examination is unremarkable. At this time:?? referral to physical therapy. Trial with Mobic 7.5 mg/day.??? f/u in 4-6 weeks.??? Personally performed the services described in this documentation, as scribed by:?Barbara Pham?[employer]?in my presence, and it is both accurate and complete. MDM: low number problems, low amount data, low risk complications. Total time: 20 minutes.? ? Ordered: Referral Request 2.0 - DoD ? Orders: meloxicam(meloxicam 7.5 mg oral tablet), 1 tab(s), Oral, Daily, # 30 tab(s), 1 total refill(s), Maintenance, 1 tab(s) Oral Daily, Pharmacy: [facility] Extracted from:Title: Physical exam/ back pain/ referral Author: JUNG TAVERAS MD Date: 06/07/24 1.?Well female adult Patient c/o exacerbation of chronic low back pain.? PE: MBI 35, some low back tenderness and limited ROM.? Patient with recurrent spontaneous abortions. New bipolar disorder diagnosis . Due for labs. Personally performed the services described in this documentation, as scribed by:?Chencho Alvarado?[employer] ?in my presence, and it is both accurate and complete. MDM: preventive care visit. Ne medical problems.?? Total time: 40 minutes. ? 2.?Bipolar disorder Diagnosed by psychiatrist, just stared Suzanne. As per patient doing better.? ? 3.?Recurrent miscarriage As per patient, at least 10 miscarriages? since age 17.? She has 2 live children. Requesting referral to [facility] for evaluation and treatment.? If specialist does not do PAP smear, will schedule for one in the near future.? Ordered: Referral Request 2.0 - DoD ? 4.?Bruising Patient reports easy bruising last few months. On exam, only small ecchymoses on legs.?? Will check basic labs. ? 5.?Ankle edema Mild. Likely due to excessive water po intake. Patient advised to reduce water intake.?? Will check labs.?? f/u in 10-14 days. ? 6.?Low back pain Reported L5 surgery at age 17 due to vertebral fracture.?? Patient reports severe pain exacerbation and sensation of something moving in the area.??? Will obtain X ray , consider PT referral r medications once x rays reviewed. f/u in 10 days.? ? Orders: CBC w/ Diff Comprehensive Metabolic Panel Hemoglobin A1c Lipid Panel PT and INR Thyroid Stimulating Hormone Vitamin D 25 Hydroxy Level XR Spine Lumbosacral 2 or 3 Views Extracted from:Title: Referral request Author: JUNG TAVERAS MD Date: 05/13/24 1.?Depression Patient with depression. Also scored positive for anxiety. Not suicidal . In the past managed by psychiatrist . Possible bipolar diagnosis contemplated.? Paroxetine in the past made her feel 'flat'. At this time, will refer for counseling? and psychiatrist .?? If initial appointment takes more than 6 weeks, patient to call clinic and schedule appointment for possible medication prescription.?? Personally performed the services described in this documentation, as scribed by:?Karina Rodas?[employer] ?in my presence, and it is both accurate and complete. MDM: low number problems, low amount data, low risk complications.? Ordered: Referral Request 2.0 - DoD ? Orders: Referral Request 2.0 - DoD Extracted from:Title: Cardiology Office Visit Note Author: KIM STALLWORTH NP Date: 09/16/23 Test result to patient by telephone ? [employer] Monitor 6 days, 4 hours analysis time. Predominantly sinus rhythm. HR ranged from 68 bpm to 154 bpm (average 97 bpm). No pathologic arrhythmias or AV block/bradycardia seen. No ectopy during study period. Diagnostic monitor- reported symptoms correlate only with sinus rhythm/sinus tachycardia. ? Recommendations:? Recommend detailed work-up to rule out secondary causes of tachycardia to include anemia, endocrine disorders, anxiety, and medication side effects, amongst others. -Follow-up with ordering provider ? Extracted from:Title: f/u Holter Author: JUNG TAVERAS MD Date: 09/16/23 1.?Tachycardia Patient is c/o rapid heart beat all the time.? 7 days Holter with average HR from 68 to 154, average of 97.? Early PM ( 12 pm to 6 pm) in the 100-130s.? No anemia, normal TSH.? Patient still concerned about this. Will refer to cardiology for evaluation.? Personally performed the services described in this documentation, as scribed by:?Melissa Hernandez?[employer]?in my presence, and it is both accurate and complete. MDM: low number problems, low amount data, low risk complications.? Ordered: Referral Request 2.0 ? Extracted from:Title: Office Clinic Note Author: MELISSA HERNANDEZ Date: 09/16/23 1.?Tachycardia Extracted from:Title: Negative test Author: JUNG TAVERAS MD Date: 08/20/23 1.?Menstrual disorder Irregular menses on Nexplanon, now no menses x 40 days.?? Normal TSH 3 months ago.?? HCG, yesterday, <1.?? NO .??? Patient has active gynecology referral , still needs to work with referral management to be assigned a provider in [place].??? Personally performed the services described in this documentation, as scribed by: Melissa Hernandez [employer]??in my presence, and it is both accurate and complete. MDM: low number problems, low amount data, low risk complications.? Orders: Extracted from:Title: Office Clinic Note Author: JUNG TAVERAS MD Date: 08/19/23 1.? test finding No menses x 40 days.? Patient c/o symptoms. She has Nexplanon. If HCG positive, patient will need immediate Nexplanon removal. Will contact patient tomorrow with HCG results and plan of action. Personally performed the services described in this documentation, as scribed by:?Melissa Hernandez?[employer] ?in my presence, and it is both accurate and complete. MDM: low number problems, low amount data,?moderate risk complications.? Orders: Beta HCG Quantitative Labs reviewed.?? Negative antiphospholipid tests.?? Patient did? not seen director index for recurrent miscarriages.? Extracted from:Title: Office Clinic Note Author: KARINA RODAS LPN Date: 07/21/23 1.?Breast pain Extracted from:Title: Office Clinic Note Author: KARINA RODAS LPN Date: 06/10/23 Orders: *Resuscitation Status Extracted from:Title: Office Clinic Note Author: KARINA RODAS LPN Date: 05/27/23 1.?Menometrorrhagia 2.?Recurrent miscarriage 11/22/2024 Ambulatory Pharmacy Functional Status Combined list of recent functional and cognitive assessments recorded at Department of Defense and Veterans Affairs (VA).VA Functional [place] Measurement (FIM) Scale: 1 = Total Assistance (Subject = 0% +), 2 = Maximal Assistance (Subject = 25% +), 3 = Moderate Assistance (Subject = 50% +), 4 = Minimal Assistance (Subject = 75% +), 5 = Supervision, 6 = Modified [place] (Device), 7 = Complete [place] (Timely, Safely). Assessment Date/Time Source Assessment Type Assessment Skill Assessment Score Assessment Details No data available for this section
--- OUTSIDE RECORDS SUMMARY | 2024-11-22 13:16 | XMS_ITS | Continuity of Care Document ---
Author Name [facility] Organization [facility] Care Team Providers Care Biofuels Technology Manager Name Role Phone [facility] Unavailable Unavailable Problems Combined list of problems from Department of [employer] and Veterans Affairs facilities. It does not include entries that were removed or entered in error. Problem Status Onset Date Problem Type Date of Resolution Comments Source Depression Active [address] [place] [address] [place] Bacterial vaginosis Active [address] [place] [address] Obesity Active [address] [place] [address] Body mass index [BMI] 35.0-35.9, adult Active [address] [place] [address] [facility] Encounter for gynecological examination (general) (routine) with abnormal findings Active [address] [place] [address] [facility] Candidiasis of skin and nail Active [address] [place] [address] Recurrent miscarriage Active [address] [place] [address] Abdominal pain Active 4 Diagnosis [facility] Ankle edema Active [address] [place] [address] [place] Test result to patient by telephone Active [address] [place] [address] [place] Abdominal pain Active Condition Ambulat ory Pharmacy [...] list of outpatient medications from Department of [employer] and Veterans Affairs facilities.Medications provided include 1) [...] nce, 8.5g = 1 inhaler, Pharmacy : [facility] Inhala tion (breat he in) Ordered 8.5 0108A-A [facility] Bentyl 20 mg oral tablet 1 tab(s), Oral, QID, # 40 tab(s), 0 total refill(s ), Maintena nce, Pharmacy : [facility] Oral (given by mouth) Complet ed 05/13/2024 40.0 0108A-A Bernard Du [facility] cephalexin 500 mg oral tablet 1 tab(s), Oral, QID, X 7 days, # 28 tab(s), 0 total refill(s ), Acute, 07/28/23 2:25:00 PM CDT, Pharmacy : [facility] Oral (given by mouth) Complet ed 07/28/2023 28.0 6126C-C [facility] [employer] hydroCHLORO thiazide 12.5 mg oral capsule 1 cap(s), Oral, Daily, for edema, # 14 cap(s), 0 total refill(s ), Maintena nce, Pharmacy : [facility] Oral (given by mouth) Ordered 14.0 6126C-[facility] [employer] PowerDMS inhaler spacer (optichambe r) 1 EA, N/A, As Directed , Use as directed with albutero l inhaler, # 1 EA, 0 total refill(s ), Maintena nce, Supply, Route to [facility] Not Applic able Ordered 1.0 0108A[facility] meloxicam 7.5 mg oral tablet 1 tab(s), Oral, Daily, # 30 tab(s), 1 total refill(s ), Maintena nce, Pharmacy : [facility] Oral (given by mouth) Ordered 30.0 6126C-C [facility] metroNIDAZO LE 500 mg oral tablet 1 tab(s), Oral, BID, X 7 days, # 14 tab(s), 0 total refill(s ), Acute, 07/21/24 9:33:00 AM CDT, Pharmacy : [facility] , Gynecolo gic, other Oral (given by mouth) Complet ed 07/21/2024 14.0 6126C[facility] naproxen 500 mg oral tablet 1 tab(s), Oral, BID, # 30 tab(s), 0 total refill(s ), Acute, 09/02/23 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:00 AM CUSTOMER SERVICE RECEPTIONIST, Pharmacy : [facility] Oral (given by mouth) Complet ed 09/02/2023 30.0 6126C[facility] nystatin 100,000 units/g topical powder 1 appl(s), Topical, BID, # 30 g, 0 total refill(s ), Maintena nce, Pharmacy : [facility] Topica l (on the skin) Ordered [...] total refill(s ), Gabo gonzalez, Pharmacy : [facility] Oral (given by mouth) Complet ed 05/13/2024 30.0 [facility] Allergies, Adverse Reactions, Alerts Combined list of allergies from Department of Defense and Veterans Affairs facilities. It does not include entries that were removed or entered in error. Substance Category Reaction Severity Reaction type Status Date Reported Comments Source Singulair Drug allergy Eruption of skin (disorder) Moderate Active 6126C-[facility] Dilip-i ss Versed Drug allergy Eruption of skin (disorder) Moderate Active [facility]-i ss Results Combined list of recent chemistry, [...] y Pharmacy AP Specimen s AP Cyto RESEARCH KENNEL SUPERVISOR Patient: Chris Rider Specimen #: [id number] Patholog ist: Accessio n: [facility] DEPARTME NT OF PATHOLOG Y [address] [facility] [place] [address] Tel: [phone] Fax: Cytology Gynecolo gic Report Patient: Chris Rider Specimen #: [id number] DOD ID:: [id number] Encounte r #: [id number] Taken: 4 10:26 /Age: [age] [...] test was performe d using APTIMA HPV (ADOMIC (formerly [employer]) ) which detects HPV E6/E7 mRNA. The high-ris k HPV types detected by APTIMA HPV include: 16, 18, 31, 33, 35, 39, 45, 51, 52, 56, 58, 59, 66, and 68. SUSAN LIPSCOMB Clinical Diagnosi s and History screenin g for malignan t neoplasm of cervix Prior History Signed Out Specimen # Interpre tation CPT Codes: 61407 The Pap test is a screenin g [...] <15 G5 Kidney failure [facility] Chemistr y Glucose Lvl [...] 06/22 N [facility] Hematolo gy WBC 7.40 10^3/uL 3.60 - 11.69510 06/22 [facility] Hematolo gy RBC 4.93 10^6/uL 4.00 - 5.14700 06/22 N [facility] Hematolo gy [...] Hematolo gy Platelets 272.00 10^3/uL 150.00 - 440.44797 06/22 N [facility] Hematolo gy MPV 9.50 fL 7.60 - 11.60 06/22 N [facility] Hematolo gy [...] gy Neutro Absolute 4.52 10^3/uL 1.50 - 8.49649 06/22 N [facility] Hematolo gy Lymph Absolute 2.07 10^3/uL 1.00 - 4.18940 06/22 N [facility] Hematolo gy Bergen Absolute 0.45 10^3/uL 0.00 - 1.51037 06/22 N [facility] Hematolo gy Eos Absolute 0.32 10^3/uL 0.00 - 1.08883 06/22 N [facility] Hematolo gy Baso Absolute 0.02 10^3/uL 0.00 - 0.50261 06/22 N [facility] Hematolo gy nRBC % Auto 0 % 0 - 0 06/22 N [facility] Hematolo gy nRBC Absolute 0 06/22 [facility] Hematolo gy Imm. Granulocyt e Absolute 0.02 10^3/uL 0.00 - 1.32751 06/22 N [facility] Chemistr y [...] 100 5000 3 - 4 week 500 82581 4 - 5 week 1000 29149 5 - 6 week 68002 689376 6 - 8 week 10046 334390 8 - 12 week 70233 [id number] [facility] Chemistr y T3 Total 1.200 ng/mL 0.870 - 1.780 07/30 N [facility] Chemistr y TSH 2.350 uIU/mL 0.350 - 5.500 07/30 N [facility] Chemistr y T4 Free 1.120 ng/dL 0.580 - 1.640 07/30 N [facility] Coagulat ion Coag Studies Interpreta rashad TERESA Note 07/30 Result Comment: --------- COAGULATION [...] APS- antiphospho lipid syndrome; DTI-direct thrombin inhibitors. SLEEP LAB TECHNOLOGIST: For questions regarding panel interpretat ion, please contact Clinton Stevenson M.D. at [facility] at [phone]. --------- DISCLAIMER These assessments and interpretat ions are provided as a convenience in support of the physician-p [facility] and are not intended to replace [...] Andrew DA et al. Blood. 2007;110(9) : 4921-3096. Performed At: 01 [facility] [address] [place], [place] [id number] Baldomero Ortega MD Ph:[phone] [facility] Coagulat ion aPTT [...] Coag Studies Interp Report. Performed At: 01 [facility] [address] [id number] Maude Garcia MD Ph:[phone] Performed At: [address] [facility] [address] [place], [place] [id number] Howard Medina MD Ph:[phone] [facility] Chemistr y TSH 1.170 [...] - 6 05/27 N [facility] Chemistr y [...] failure [facility] Hematolo gy WBC 6.51 10^3/uL 3.60 - 11.13041 05/27 N [facility] Hematolo gy RBC 5.03 10^6/uL 4.00 - 5.01230 05/27 N [facility] Hematolo gy [...] Hematolo gy Platelets 278 10^3/uL 150 - 469950 05/27 N [facility] Hematolo gy [...] gy Neutro Absolute 3.71 10^3/uL 1.50 - 8.34881 05/27 N [facility] Hematolo gy Lymph Absolute 2.19 10^3/uL 1.00 - 4.37561 05/27 N [facility] Hematolo gy Bergen Absolute 0.40 10^3/uL 05/27 [facility] Hematolo gy Eos Absolute 0.17 10^3/uL 0.00 - 1.59485 05/27 N [facility] Hematolo gy Baso Absolute 0.04 10^3/uL 0.00 - 0.00331 05/27 N [facility] Hematolo gy nRBC % Auto 0 % 05/27 N [facility] Hematolo gy nRBC Absolute 0 10^3/uL 05/27 [facility] Hematolo gy Imm. Granulocyt e Absolute 0.02 10^3/uL 0.00 - 1.00995 05/27 N [facility] Vital Signs Combined list [...] ADM Date DC Date Status Disposition Source [facility] [id number] JUNG SANDS 06/22 Discharge Disposition: Home or Self Care 0108A-A Bernard Kauffman 6126C-[facility] [id number] Unspeci fied abdomin al pain,Lo calized edema,P erson consult ing for explana tion of examina tion or test finding s JUNG SANDS 06/27 Discharge Disposition: Home or Self Care [facility] [phone] Recurre nt pregnan cy loss JUNG SANDS 07/07 Discharge Disposition: Home or Self Care [facility] [id number] Acute vaginit is,Obes ity, unspeci fied,Frank dy mass index (BMI) 35.0-35 .9, adult,E ncounte r for gynecol ogical examina tion (genera l) (routin e) with abnorma l finding s,Shakila diasis of skin and nail JUNG SANDS 07/12 Discharge Disposition: Home or Self Care [facility] [id number] Depress ion, unspeci fied JUNG SANDS 09/13 Discharge Disposition: Home or Self Care [address] [place] [address] Procedures Combined list of: 1) Procedures from Department of Veterans Affairs facilities going back up to thelast 18 months, not all [place] non-surgical procedures are included; 2) All procedures from the Department of Defense facilities. Procedure Procedure Type Code Date Perfomer Comments Sourc e Lumbar surgical sympathectomy Lumbar sympathectomy (procedure) [id number] [address] [place] [address] Social History Combined list of available smoking, [...] - DoD ? ? ? Jung Taveras???[facility] [phone] [address]? [place] [address] ? Extracted from:Title: Office Clinic Note WWE Author: GEORGES BARROW NP Date: 07/12/24 1.?Encounter for gynecological examination (general) (routine) with abnormal findings 23-year-old female G9, P2?reports trying to conceive and being currently managed by RESEARCH KENNEL SUPERVISOR.? Today pelvic exam mostly unremarkable with the [...] patient agrees with plan.? ? BUCK Zuñiga-ANILA [facility] [address] [place] [place] [address] ? [...] screening of cervical cancer. Ordered: AP Cytology RESEARCH KENNEL SUPERVISOR Concrete Batcher Assist Pelvic Exam Setup ? 5.?Candidiasis of skin and nail Patient with findings of?candidate to?groin area.? Will treat with nystatin powder. ?Patient advised keeping area dry?wearing?mostly white cotton underwear?and decrease moisture?when possible. ? 6.?Obesity Patient with reports of inability to lose weight in spite of healthy diet and exercise. ?BMI 35. ?Will refer to paper tube grader for further management. ? 7.?Body mass index [BMI] 35.0-35.9, adult ? Orders: nystatin topical(nystatin 100,000 units/g topical powder), 1 appl(s), Topical, BID, # 30 g, 0 total refill(s), Maintenance, 1 appl(s) Topical BID, Pharmacy: [facility] [Not filled] Dictation is done with [employer] software which has inherent errors. ?Every attempt is made to proof read material. Parts of the note are initiated by a scribe. These notes are reread and I am in agreement with its contents. Extracted from:Title: [employer] referral Author: JUNG TAVERAS MD Date: 07/07/24 1.?Recurrent miscarriage Patient claims to have, at least, 10 spontaneous abortions and 2 live births ( from age 17 to age 23, with a 22 month period of using Nexplanon).?? Last miscarriage 2 months ago.? Patient has seen a test hole driller in?[place] but needs new referral . She would like to have more children. ? Previous referral 05/2024, patient was sent to another RESEARCH KENNEL SUPERVISOR. Patient wants referral to specific test hole driller in [place].? Personally performed the services described in this [...] described in this documentation, as scribed by:?Karina Rodas?BARK FITTER?in my presence, and it is both accurate [...] continues with pain. Advised to go to [facility] ER for reevaluation today.? Extracted from:Title: Low [...] described in this documentation, as scribed by:?Barbara Pham?BARK FITTER?in my presence, and it is both accurate [...] described in this documentation, as scribed by:?Chencho Alvarado?BARK FITTER ?in my presence, and it is both [...] described in this documentation, as scribed by:?Karina Rodas?BARK FITTER ?in my presence, and it is both accurate and complete. MDM: low number problems, low amount data, low risk complications.? Ordered: Referral Request 2.0 - DoD ? Orders: Referral Request 2.0 - DoD Extracted from:Title: Cardiology Office Visit Note Author: KIM STALLWORTH NP Date: 09/16/23 Test result to patient by telephone ? [employer] Monitor 6 days, 4 hours analysis time. [...] described in this documentation, as scribed by:?Melissa Hernandez?BARK FITTER?in my presence, and it is both accurate [...] management to be assigned a provider in [place].??? Personally performed the services described in this documentation, as scribed by: Melissa Hernandez BARK FITTER??in my presence, and it is both accurate [...] described in this documentation, as scribed by:?Melissa Hernandez?BARK FITTER ?in my presence, and it is both accurate and complete. MDM: low number problems, low amount data,?moderate risk complications.? Orders: Beta HCG Quantitative Labs reviewed.?? Negative antiphospholipid tests.?? Patient did? not seen test hole driller for recurrent miscarriages.? Extracted from:Title: Office Clinic [...] of Defense and Veterans Affairs (VA).VA Functional Wake Measurement (FIM) Scale: 1 = Total Assistance (Subject = 0% +), 2 = Maximal Assistance (Subject = 25% +), 3 = Moderate Assistance (Subject = 50% +), 4 = Minimal Assistance (Subject = 75% +), 5 = Supervision, 6 = Modified Wake (Device), 7 = Complete Wake (Timely, Safely). Assessment Date/Time Source Assessment Type Assessment Skill Assessment Score Assessment Details No data available for this section
--- NOTE | 2024-11-22 13:41 | ED_ITS ---
HPI - URI/Sore Throat General Chief Complaint: Upper Respiratory Infection Stated Complaint: poss pnuemonia Time Seen by Provider: 11/22/24 13:06 Source: patient Mode of arrival: ambulatory Limitations: no limitations History of Present Illness HPI Narrative: 24-year-old female With history of asthma presented for complaint of cough, burning throat, subjective fevers. Onset 3 days. Endorses wheezing at night. D enies nausea, vomiting, diarrhea or lethargy. The son has similar symptoms. patient states she gets pneumonia yearly and this feels similar. Related Data Home Medications ?Medication ?Instructions ?Recorded ?Confirmed ?Last Taken ?Type albuterol sulfate 90 mcg/actuation inhalation 11/22/24 Unknown History aerosol inhaler Allergies Allergy/AdvReac Type Severity Reaction Status Date / Time No Known Allergies Allergy Verified 11/22/24 13:26 Review of Systems Review of Systems: per HPI All systems reviewed & are unremarkable except as noted in HPI and below PMFSH Comments At time of signature, I have reviewed and agree with nursing past medical, surgical, social and family history unless otherwise noted. Please see nursing chart for further information. There is no relevant family history pertinent to the presenting complaint Exam Narrative: GENERAL: Well-appearing, in no acute distress. EYES: EOMI. No redness or drainage. Conjunctivae normal. ENT: Mucous membranes pink and moist. No rhinorrhea. TMs normal bilaterally. Throat normal; tonsils absent. Uvula midline. NECK: Normal AROM. Supple. CHEST: No respiratory distress. Faint wheeze to left upper lung HEART: Regular rate and rhythm. No murmur appreciated. ABDOMEN: Soft, nontender, nondistended, normal active bowel sounds. SKIN: Warm, dry, no rash. Capillary refill normal. Normal skin turgor. NEURO: Alert and oriented x3. Gait steady. PSYCH: Normal affect. Course Course Emergency Course: Patient is aware of diagnosis, understands and agrees to treatment plan. Anticipatory guidance given. Patient agrees to follow-up as directed and is aware of reasons to seek care at the emergency department. Portions of this record may have been created with voice recognition software Level of Care: Express Care Visit Vital Signs Vital signs: Vital Signs Temperature 99.7 F H 11/22/24 13:08 Pulse Rate 110 H 11/22/24 13:08 Respiratory Rate 20 11/22/24 13:08 Blood Pressure 138/76 11/22/24 13:08 Pulse Oximetry 98 11/22/24 13:08 Oxygen Delivery Room Air 11/22/24 13:08 Temperature 99.7 F H 11/22/24 13:08 Pulse Rate 110 H 11/22/24 13:08 Respiratory Rate 20 11/22/24 13:08 Blood Pressure 138/76 11/22/24 13:08 Pulse Oximetry 98 11/22/24 13:08 Oxygen Delivery Room Air 11/22/24 13:08 MDM - URI/Sore Throat MDM Narrative Medical decision making narrative: Discussed physical exam findings POS strep. Advised supportive measures and s igns/symptoms to go to the ER. Pt is appropriate for outpt treatment and f/u. Differential Diagnosis Differential diagnosis: Likely upper respiratory infection, otitis media, sinusitis, viral infection, bronchitis, influenza and pharyngitis Discharge Plan Discharge Clinical Impression: Strep pharyngitis Patient Disposition: Home, Self-Care Condition: Stable Instructions: Antibiotic Form, Strep Throat (ED) Additional Instructions: Negative flu COVID. - Take the antibiotic as directed. Fever and sore throat typically resolve within one to three days. Most patients can return to work, school, or daycare after 12 to 24 hours of antibiotic therapy, provided you are fever free and otherwise well. -Eat and drink things that are easy to swallow, like soft foods, cool liquids, tea with honey, or popsicles . -Salt water gargles and/or may use topical anesthetic ( Chloraseptic spray) or lozenges to relieve dryness or throat pain -Alternate Tylenol and ibuprofen as needed for pain and fever as directed. -Frequent hand washing or hand surgical supervisor is one of the best ways to prevent spread of infection. Throw away the toothbrush after 24hours of antibiotic. -Follow up with primary care provider in 2-3 days if condition is not improving -Go to the ER if you have trouble breathing, cannot drink enough fluids, have muffled voice or drooling, difficulty opening your mouth, or severe swelling. Patient Language: Botswanan Prescriptions: New amoxicillin 500 mg tablet 1,000 mg PO DAILY 10 Days Qty: 20 0RF prednisone 20 mg tablet 40 mg PO DAILY 5 Days Qty: 10 0RF No Action albuterol sulfate 90 mcg/actuation HFA aerosol inhaler INHALATION Follow-up/Referrals: PHYSICIAN,GASOLINE TRACTOR OPERATOR [Primary Care Provider] - Time of Disposition: 13:48
[2024-11-22 13:45] LABS: EDCOVIDSCREEN Negative (Negative); EDINFLUASCREEN Negative (Negative); EDINFLUBSCREEN Negative (Negative); EDSTREPNEGPOS1 Positive (Negative)
== END 2024-11-22 13:50 | disposition home or self-care (01) ==
PROVIDERS: Emergency Provider Nurse Practitioner Family
DX: J02.0 Streptococcal pharyngitis (principal); Z20.822 Contact with and (suspected) exposure to COVID-19
CPT/HCPCS: 87426; 87804; 87880; 99203; G0463